=== PATIENT | female | born 1990 | race African-American/Black ===

== ENCOUNTER 2018-09-19 19:25 | Emergency (ER) | payer BC ==
[~2018-09-19] VITALS: Ht 162.6 cm; Wt 98.9 kg
[2018-09-19] MEDS ORDERED: NOHOMEMEDICATIONS (19:52)
[2018-09-19 21:09] VITALS: BP 136/81
--- NOTE | 2018-09-20 09:20 | EKG ---
[place] [address] [facility] [place] [address] ELECTROCARDIOGRAM REPORT Name: JEREMY HERNÁNDEZ [facility] [id number] Admission: 09/19/18 Attend Phys: Discharge: 09/19/18 Date of : 89 Report #: [id number] THIS REPORT FOR: //name// [facility] ED Test Date: 2018-09-19 Test Time: 20:17:27 Pat Name: JEREMY HERNÁNDEZ Department: Room: Gender: F Trimmer Helper: Roxane MURILLO : 1990 Requested By: Micky Nuno Order Number: [id number] MD: Aris Chow Measurements Intervals [place] Rate: 61 P: 63 WV: 168 QRS: 50 QRSD: 79 T: 26 QT: 368 QTc: 371 Interpretive Statements Sinus rhythm Baseline wander in lead(s) V5 No previous ECG available for comparison Electronically Signed On 09-20-2018 9:20:44 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
== END 2018-09-19 21:50 | disposition home or self-care (01) ==
LOC: ER 19:25
DX: R07.89 Other chest pain (principal)